=== PATIENT | female | born 1980 | race African-American/Black ===

== ENCOUNTER 2019-06-07 12:49 | Outpatient (REF) | payer MEDICARE, SELFPAY ==
[2019-06-07 22:52] LABS: ALT 27 U/L (14-59); AST 21 U/L (15-37); Albumin 4.1 g/dL (3.4-5.0); Alkaline Phosphatase 77 U/L (46-116); Anion Gap 7.4 mmol/L (3-11); BUN 10 mg/dL (7-18); Bilirubin, Total 0.4 mg/dL (0.2-1.0); CO2 28.6 mmol/L (21.0-32.0); CREATININE 0.95 mg/dL (0.55-1.02); Calcium 8.7 mg/dL (8.5-10.1); Chloride 104 mmol/L (98-107); Glucose 77 mg/dL (74-106); Lipase 150 U/L (73-393); Potassium 4.1 mmol/L (3.5-5.1); Sodium 140 mmol/L (136-145); Total Protein 7.1 g/dL (6.4-8.2)
== END 2019-06-07 13:09 ==
LOC: NCHCN 12:49
PROVIDERS: Visit Provider Nurse Practitioner Community Health
DX: K21.9 Gastro-esophageal reflux disease without esophagitis (principal); K81.9 Cholecystitis, unspecified
CPT/HCPCS: 80053; 83690

== ENCOUNTER 2022-06-08 16:02 | Outpatient (REF) | payer MEDICARE, MEDICAID, SELFPAY ==
[2022-06-10 10:24] LABS: HIV-1/2 Ag & Ab Screen Negative (Negative)
[2022-06-10 10:29] LABS: Hepatitis C Ab w Rflx HCV PCR Negative (Negative)
[2022-06-10 10:44] LABS: Syphilis Serology (RPR) Negative (Negative)
[2022-06-10 14:52] LABS: Chlamydia Result Negative (Negative); GC Result Negative (Negative)
== END 2022-06-08 16:03 | disposition home or self-care (01) ==
LOC: NCHCN 16:02
PROVIDERS: Visit Provider Internal Medicine
DX: Z11.3 Encounter for screening for infections with a predominantly sexual mode of transmission (principal); Z11.4 Encounter for screening for human immunodeficiency virus [HIV]; Z11.59 Encounter for screening for other viral diseases; Z72.89 Other problems related to lifestyle
CPT/HCPCS: 86803; 87389; 87491; 87591; 86592

== ENCOUNTER 2022-08-10 16:19 | Outpatient (REF) | payer MEDICARE, MEDICAID, SELFPAY ==
[2022-08-10 20:56] LABS: HGB 12.8 g/dL (11.2-15.7); MCH 27.1 pg (27.0-33.0); MCHC 32.8 % (32.0-36.0); MCV 83 fL (80-95); MPV 10.2 fL (8.0-11.0); Platelet Count 271 10^3/uL (130-400); RBC 4.72 10^6/uL (3.93-5.22); RDW 12.8 % (11.7-14.6); RDW-SD 38.9 fL; WBC 8.79 10^3/uL (4.4-10.8)
[2022-08-10 21:14] LABS: ALT 46 U/L (14-59); AST 26 U/L (15-37); Albumin 4.4 g/dL (3.4-5.0); Alkaline Phosphatase 76 U/L (46-116); Anion Gap 7.1 mmol/L (3-11); BUN 9 mg/dL (7-18); Bilirubin, Total 0.5 mg/dL (0.2-1.0); CO2 28.9 mmol/L (21.0-32.0); Calcium 9.8 mg/dL (8.5-10.1); Chloride 101 mmol/L (98-107); Estimated GFR 72.58 (mL/min/1.73m2); Glucose 110 mg/dL (74-106); Potassium 3.5 mmol/L (3.5-5.1); Sodium 137 mmol/L (136-145); TSH 1.25 uIU/mL (0.36-3.74)
[2022-08-10 21:29] LABS: Vitamin D 25 Total 57.2 ng/mL (30-100)
[2022-08-11 19:21] LABS: FSH 7.4 mIU/mL (See Note)
== END 2022-08-10 16:20 | disposition home or self-care (01) ==
LOC: NCHCN 16:19
PROVIDERS: Visit Provider Internal Medicine
DX: R13.10 Dysphagia, unspecified (principal); E55.9 Vitamin D deficiency, unspecified
CPT/HCPCS: 80053; 82306; 85027; 83001; 84443

== ENCOUNTER 2022-12-02 18:54 | Outpatient (REF) | payer MEDICARE, MEDICAID, SELFPAY ==
[2022-12-02 21:30] LABS: Hemoglobin A1C 5.6 % (<5.7)
[2022-12-02 21:39] LABS: ALT 39 U/L (14-59); AST 26 U/L (15-37); Alkaline Phosphatase 90 U/L (46-116); BUN 6 mg/dL (7-18); Bilirubin, Total 0.3 mg/dL (0.2-1.0); CREATININE 0.8 mg/dL (0.55-1.02); Chloride 102 mmol/L (98-107); Estimated GFR 94.87 (mL/min/1.73m2); Glucose 85 mg/dL (74-106); Potassium 3.9 mmol/L (3.5-5.1); Sodium 139 mmol/L (136-145); Total Protein 7.9 g/dL (6.4-8.2)
== END 2022-12-02 18:55 | disposition home or self-care (01) ==
LOC: NCHCN 18:54
PROVIDERS: Visit Provider Internal Medicine
DX: R10.11 Right upper quadrant pain (principal); R73.9 Hyperglycemia, unspecified
CPT/HCPCS: 80053; 83036

== ENCOUNTER 2022-12-15 09:08 | Outpatient (REF) | payer MEDICARE, MEDICAID, SELFPAY ==
--- NOTE | 2022-12-14 12:40 | PAPFT_PTH ---
PATIENT: Elian Jaquez LOC: [facility] U#:[id number] AGE/SX: 42/F ROOM: RE12/15/[address]: Arabella Biswas : 1980 BED: DIS: 12/15/2022 SPEC #: [id number] RECD: 12/15/22 13:10 STATUS: KARLEY KLEIN #: [id number] TRINA: 12/14/22 12:[address]: Arabella Biswas DEPT: [facility] Cytology RECD BY: Peggy Almendarez Tissues: 1 - CX/ENDOCX FOR PAP SMEARS Procedures: PAP THIN PREP/[facility] Screening HPV DNA PROBE Comments: [id number]
== END 2022-12-15 09:09 | disposition home or self-care (01) ==
LOC: NCHCN 09:08
PROVIDERS: Visit Provider Internal Medicine
DX: Z11.51 Encounter for screening for human papillomavirus (HPV) (principal); Z01.419 Encounter for gynecological examination (general) (routine) without abnormal findings
CPT/HCPCS: 88142; 87624

== ENCOUNTER 2023-05-18 09:56 | Outpatient (REF) | payer MEDICARE, MEDICAID, SELFPAY ==
[2023-05-19 10:31] LABS: HIV-1/2 Ag & Ab Screen Negative (Negative)
[2023-05-19 15:00] LABS: Chlamydia Result Negative (Negative); GC Result Negative (Negative)
== END 2023-05-18 09:57 | disposition home or self-care (01) ==
LOC: NCHCN 09:56
PROVIDERS: PCP Internal Medicine; Visit Provider Internal Medicine
DX: Z11.3 Encounter for screening for infections with a predominantly sexual mode of transmission (principal); Z01.419 Encounter for gynecological examination (general) (routine) without abnormal findings; Z11.4 Encounter for screening for human immunodeficiency virus [HIV]; Z72.51 High risk heterosexual behavior
CPT/HCPCS: 87389; 87491; 87591